=== PATIENT | male | born 1985 | race Two or more races ===

== ENCOUNTER 2024-08-25 12:29 | Emergency (ER) | payer SELFPAY ==
[2024-08-25 12:53] VITALS: BP 128/78; PULSE 80; RESP 16; TEMP 98; BMI 32.1
[2024-08-25] MEDS ORDERED: TETANUS AND DIPHTHERIA TOXOID 0.5 ML DISP.SYRIN IM ONE (13:43)
[2024-08-25] MEDS ORDERED: IBUPROFEN 600 MG TABLET (FP) PO ONE (14:17)
[2024-08-25] MEDS ORDERED: DIPHTH,PERTUSS(ACELL),TET 0.5 ML DISP.SYRIN IM ONE (14:18)
[2024-08-25] MEDS: IBUPROFEN 600 MG TABLET (FP) PO ONE (15:01)
== END 2024-08-25 15:40 | disposition home or self-care (01) ==
LOC: JERFT 12:29
PROC: 0HQ1XZZ Repair Face Skin, External Approach (ICD-10-PCS; principal; 2024-08-25)
DX: S01.112A Laceration without foreign body of left eyelid and periocular area, initial encounter (principal); W22.8XXA Striking against or struck by other objects, initial encounter
CPT/HCPCS: 99283-25